=== PATIENT | male | born 1955 ===

== ENCOUNTER 2017-03-08 07:33 | Emergency (ER) | payer OTHER ==
[2017-03-08 07:41] VITALS: O2SAT 98
[2017-03-08] MEDS ORDERED: Naproxen 550 mg Tab PO STA (08:17)
[2017-03-08] MEDS ORDERED: Naproxen 550 mg Tab PO ONE (08:36)
--- NOTE | 2017-03-08 08:46 | C.PDOC ---
History Of Present Illness 61 y/o male presents to ED with c/o right arm pain for 3 days. Notes pain worsens with movement and that pain starts at the right shoulder and radiates down. Patient states he has not taken anything for pain. He notes pain is alleviated by putting his hand over his head. Denies trauma, sensory changes, or other associated symptoms. Time Seen by Provider: 03/08/17 07:44 Chief Complaint (Nursing): Upper Extremity Problem/Injury History Per: Patient, Family History/Exam Limitations: language barrier Onset/Duration Of Symptoms: Days Current Symptoms Are (Timing): Still Present Quality: "Pain" Exacerbating Factor(s): Movement Recent travel outside of the [place]: No Past Medical History Reviewed: Historical Data, Nursing Documentation, Vital Signs Vital Signs: Last Vital Signs Temp 98.2 F 03/08/17 09:01 Pulse 64 03/08/17 09:01 Resp 16 03/08/17 09:01 BP 148/73 03/08/17 09:01 Pulse Ox 98 03/08/17 09:33 - Medical History PMH: Hyperthyroidism Family History: States: Unknown Family Hx - Social History Hx Alcohol Use: No Hx Substance Use: No - Immunization History Hx Influenza Vaccination: No Review Of Systems Except As Marked, All Systems Reviewed And Found Negative. Constitutional: Negative for: Fever, Chills Musculoskeletal: Positive for: Shoulder Pain (R), Arm Pain (R) Skin: Negative for: Rash Neurological: Negative for: Weakness, Numbness Physical Exam - Physical Exam Appears: Non-toxic, No Acute Distress Skin: Warm, Dry Head: Atraumatic, Normacephalic Eye(s): bilateral: Normal Inspection, EOMI Nose: Normal Oral Mucosa: Moist Neck: Normal ROM, Supple Chest: Symmetrical Cardiovascular: Rhythm Regular Respiratory: Normal Breath Sounds Extremity: Normal ROM, Tenderness (diffuse right shoulder), Capillary Refill (< 2 sec.), No Deformity, No Swelling Extremity: Bilateral: Normal Color And Temperature Pulses: Left Radial: Normal, Right Radial: Normal Neurological/Psych: Oriented x3, Normal Motor, Normal Sensation ED Course And Treatment O2 Sat by Pulse Oximetry: 98 (RA) Pulse Ox Interpretation: Normal - Other Rad Right Shoulder XR X-Ray: Interpreted by Me Interpretation: negative for acute fx or dislocation Progress Note: Treated with Naproxen. Right shoulder x-ray ordered and reviewed. On re-eval, Patient is resting comfortably, and is in no acute distress, with improvement of pain. Patient was instructed to follow up with PMD /ortho in 1-2 days for further evaluation. Case discussed with Dr Loredo, agreed upon plan and discharge. Disposition - Disposition Referrals: Katya Patino MD [Staff Provider] - Disposition: HOME/ ROUTINE Disposition Time: 08:59 Condition: STABLE Additional Instructions: Vaya a steiner mdico o la clnica en 2-5 zepeda sin falta, para mas evaluacin. [place] los medicamentos ayse indicado. Volver a la johnny de emergencia en cualquier momento si los sntomas persisten o empeoran. 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 - Scribe Statement The provider has reviewed the documentation as recorded by the Scribe SM All medical record entries made by the Scribe were at my direction and personally dictated by me. I have reviewed the chart and agree that the record accurately reflects my personal performance of the history, physical exam, medical decision making, and the department course for this patient. I have also personally directed, reviewed, and agree with the discharge instructions and disposition.
[2017-03-08 09:02] VITALS: BP 148/73; PULSE 64; RESP 16; TEMP 98.2
--- NOTE | 2017-03-08 09:10 | RAD ---
PROCEDURE: Radiographs of the Right Shoulder HISTORY: pain COMPARISON: No prior. FINDINGS: BONES: No fracture. JOINTS: Glenohumeral and acromioclavicular osteoarthritis with glenoid rim and greater tuberosity subchondral cystic changes. SOFT TISSUES: Normal. OTHER FINDINGS: Cervical apophyseal joint arthrosis IMPRESSION: Glenohumeral and acromioclavicular an cervical arthrosis.
== END 2017-03-08 09:25 | disposition home or self-care (01) ==
LOC: C.ER 07:33
DX: M19.011 Primary osteoarthritis, right shoulder (principal); E05.90 Thyrotoxicosis, unspecified without thyrotoxic crisis or storm

== ENCOUNTER 2018-06-29 11:46 | Emergency (ER) | payer OTHER ==
[2018-06-29 12:16] VITALS: RESP 18
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
--- NOTE | 2018-06-29 13:45 | RAD ---
Date of service: 06/29/2018 HISTORY: chest pain COMPARISON: No prior. TECHNIQUE: Chest PA and lateral FINDINGS: LUNGS: No active pulmonary disease. PLEURA: No significant pleural effusion identified. No pneumothorax apparent. CARDIOVASCULAR: No aortic atherosclerotic calcification present. Normal cardiac size. No pulmonary vascular congestion. OSSEOUS STRUCTURES: No significant abnormalities. VISUALIZED UPPER ABDOMEN: Normal. OTHER FINDINGS: None. IMPRESSION: No active disease.
[2018-06-29 14:09] VITALS: BP 130/76; PULSE 66; TEMP 97.7; O2SAT 97
== END 2018-06-29 14:09 | disposition home or self-care (01) ==
LOC: C.ER 11:46
DX: T14.8XXA Other injury of unspecified body region, initial encounter (principal); V49.59XA Passenger injured in collision with other motor vehicles in traffic accident, initial encounter; Y92.410 Unspecified street and highway as the place of occurrence of the external cause